=== PATIENT | female | born 1985 | race Hispanic/Latino ===

== ENCOUNTER 2017-12-07 08:46 | Emergency (ER) | payer OTHER ==
[2017-12-07] MEDS ORDERED: Sodium Chloride 0.9% 1,000 ML IV STA (09:45)
[2017-12-07 10:02] LABS: BASO # 0.1 K/uL (0.0-0.2); BASO % 0.5 % (0.0-2.0); EOS # 0.2 K/uL (0.0-0.7); EOS % 1.7 % (0.0-4.0); HEMOGLOBIN 13.9 g/dL (12.0-16.0); LYMPH # 4.5 K/uL (1.0-4.3); LYMPH % 40.8 % (20.0-40.0); MEAN CELL VOLUME 83.1 fl (81.0-99.0); MEAN CORPUSCULAR HEMOGLOBIN 27.9 pg (27.0-31.0); MEAN CORPUSCULAR HGB CONC 33.6 g/dL (33.0-37.0); MONO # 0.6 K/uL (0.0-0.8); NEUT # 5.8 K/uL (1.8-7.0); NRBC % 0.1 % (0.0-0.0); RBC 4.97 Mil/uL (3.80-5.20); RED CELL DISTRIBUTION WIDTH 13.6 % (11.5-14.5); WHITE BLOOD COUNT 11.1 K/uL (4.8-10.8)
--- NOTE | 2017-12-07 10:12 | ED PDOC ---
HPI: Abdomen Time Seen by Provider: 12/07/17 09:38 Chief Complaint (Nursing): Abdominal Pain Chief Complaint (Provider): Abdominal Pain History Per: Patient History/Exam Limitations: no limitations Onset/Duration Of Symptoms: Days Current Symptoms Are (Timing): Still Present Additional Complaint(s): 32 year old female presents to the emergency department with a complaint of a right-sided back pain that radiates to the right upper abdomen region with an episode of vomiting. Patient reports she has a history of kidney stones. Denies urinary problems, fever, chills, or diarrhea. Past Medical History Reviewed: Historical Data, Nursing Documentation, Vital Signs Vital Signs: Last Vital Signs Temp 98.7 F 12/07/17 14:11 Pulse 84 12/07/17 14:11 Resp 16 12/07/17 14:11 BP 104/71 12/07/17 14:11 Pulse Ox 99 12/07/17 14:11 - Medical History PMH: Kidney Stones ("PASSED ON OWN"), Chronic Kidney Disease - Family History Family History: States: Unknown Family Hx - Immunization History Hx Tetanus Toxoid Vaccination: No Hx Influenza Vaccination: No Hx Pneumococcal Vaccination: No - Home Medications Home Medications: Ambulatory Orders Medication Instructions Recorded Ciprofloxacin [Cipro] 500 mg PO BID #10 tab 12/07/17 Naproxen [Naprosyn] 500 mg PO BID PRN #15 tablet 12/07/17 - Allergies Allergies/Adverse Reactions: Allergies Allergy/AdvReac Type Severity Reaction Status Date / Time No Known Allergies Allergy Verified 01/07/16 23:15 Review of Systems ROS Statement: Except As Marked, All Systems Reviewed And Found Negative (As per HPI, otherwise negative) Constitutional: Negative for: Fever, Chills Gastrointestinal: Positive for: Vomiting. Negative for: Diarrhea Genitourinary Female: Negative for: Dysuria, Frequency, Incontinence, Hematuria Musculoskeletal: Positive for: Back Pain, Other (Right-sided flank pain) Physical Exam - Reviewed Nursing Documentation Reviewed: Yes Vital Signs Reviewed: Yes - Physical Exam Appears: Positive for: In Acute Distress (Mild) Head Exam: Positive for: NORMAL INSPECTION Skin: Positive for: Normal Color, Warm, Dry Cardiovascular/Chest: Positive for: Regular Rate, Rhythm. Negative for: Murmur Respiratory: Positive for: Normal Breath Sounds. Negative for: Accessory Muscle Use, Respiratory Distress Gastrointestinal/Abdominal: Positive for: Soft, Tenderness (Right upper quadrant pain). Negative for: Normal Exam Back: Positive for: Other (Right flank pain). Negative for: Normal Inspection Neurologic/Psych: Positive for: Alert, Oriented (x3) - Laboratory Results Result Diagrams: 12/07/17 09:53 12/07/17 09:53 - ECG O2 Sat by Pulse Oximetry: 99 (RA) Pulse Ox Interpretation: Normal Medical Decision Making Medical Decision Making: Time: 943 Initial Impression: Back pain and abdominal pain Initial Plan: CMP Lipase PTT & Prothrombin Sodium Chloride 1L IV Zofran 4 mg IV Urine Culture Urinalysis Morphine 2 mg IV Abd & Pelvis CT Reevaluation Time: Abd/Pelvis CT FINDINGS: LOWER THORAX: Unremarkable. LIVER: Unremarkable. No gross lesion or ductal dilatation. GALLBLADDER AND BILE DUCTS: Unremarkable. PANCREAS: Unremarkable. No gross lesion or ductal dilatation. SPLEEN: Unremarkable. ADRENALS: Unremarkable. No mass. KIDNEYS AND URETERS: Right hydronephrosis and hydroureter without visible ureteral or bladder calculi. Bilateral upper tract calculi none larger than 3 mm. VASCULATURE: Unremarkable. No aortic aneurysm. BOWEL: Unremarkable. No obstruction. No gross mural thickening. APPENDIX: Unremarkable. Normal appendix. PERITONEUM: Unremarkable. No free fluid. No free air. LYMPH NODES: Unremarkable. No enlarged lymph nodes. BLADDER: Unremarkable. REPRODUCTIVE: Intrauterine contraceptive device (IUD) identified No significant interval change compared to the prior examination(s). BONES: No acute fracture. OTHER FINDINGS: None. IMPRESSION: 1. Right hydronephrosis, hydroureter (mild). No visible ureteral or urinary bladder calculus identified suggesting the recently passed calculus 2. Small upper tract calculi a finding identified previously. Time: 1218 --Rocephin 1 gm Time: 1300 --Patient is medically stable for discharge and given Rx for Cirpo 500 mg and Naprosyn [address] mg[address] Follow up [address] Renetta Garcia MD. Clinical Impression: Urinary Tract Infection (UTI) and Nephrolithiasis Scribe Attestation: Documented by Rachel Aly, acting as a scribe for Yisel Carolina MD. Provider Scribe Attestation: All medical record entries made by the Scribe were at my direction and personally dictated by me. I have reviewed the chart and agree that the record accurately reflects my personal performance of the history, physical exam, medical decision making, and the department course for this patient. I have also personally directed, reviewed, and agree with the discharge instructions and disposition. Disposition - Clinical Impression Clinical Impression: Nephrolithiasis, UTI (urinary tract infection) - Patient ED Disposition Is Patient to be Admitted: No Counseled Patient/Family Regarding: Studies Performed, Diagnosis, Need For Followup, Rx Given - Disposition Referrals: Renetta Garcia MD [Medical Doctor] - Disposition: Routine/Home Disposition Time: 13:00 Condition: IMPROVED Prescriptions: Ciprofloxacin [Cipro] 500 mg PO BID #10 tab Naproxen [Naprosyn] 500 mg PO BID PRN #15 tablet PRN Reason: Pain, Moderate (4-7) Instructions: Urinary Tract Infections in Adults, Kidney Stones in Adults Forms: [facility] (German)
[2017-12-07 10:14] LABS: ALB/GLOB RATIO 1.1 (1.0-2.1); ALBUMIN 4.2 g/dL (3.5-5.0); ALT/SGPT 37 U/L (9-52); AST/SGOT 25 U/L (14-36); BLOOD UREA NITROGEN 16 mg/dl (7-17); CALCIUM 9.6 mg/dL (8.4-10.2); GFR AFRICAN-AMERICAN > 60; GFR NON-AFRICAN AMERICAN > 60; LIPASE 50 U/L (23-300)
[2017-12-07 10:30] LABS: PARTIAL THROMBOPLASTIN TIME 25.1 Seconds (25.6-37.1); PROTHROMBIN TIME 11.4 Seconds (9.8-13.1)
--- NOTE | 2017-12-07 11:59 | CT ---
PROCEDURE: CT Abdomen and Pelvis without intravenous contrast HISTORY: R flank/RUQ pain COMPARISON: 01/08/2016. CT abdomen and pelvis. Summary of findings on the comparison examination: 1.6 mm obstructing distal right ureteral stone, bilateral Nonobstructing renal stones TECHNIQUE: Unenhanced study. Neither oral nor intravenous contrast administered. Radiation dose: Total exam DLP = 1018.21 mGy-cm. This CT exam was performed using one or more of the following dose reduction techniques: Automated exposure control, adjustment of the mA and/or kV according to patient size, and/or use of iterative reconstruction technique. FINDINGS: LOWER THORAX: Unremarkable. LIVER: Unremarkable. No gross lesion or ductal dilatation. GALLBLADDER AND BILE DUCTS: Unremarkable. PANCREAS: Unremarkable. No gross lesion or ductal dilatation. SPLEEN: Unremarkable. ADRENALS: Unremarkable. No mass. KIDNEYS AND URETERS: Right hydronephrosis and hydroureter without visible ureteral or bladder calculi. Bilateral upper tract calculi none larger than 3 mm. VASCULATURE: Unremarkable. No aortic aneurysm. BOWEL: Unremarkable. No obstruction. No gross mural thickening. APPENDIX: Unremarkable. Normal appendix. PERITONEUM: Unremarkable. No free fluid. No free air. LYMPH NODES: Unremarkable. No enlarged lymph nodes. BLADDER: Unremarkable. REPRODUCTIVE: Intrauterine contraceptive device (IUD) identified No significant interval change compared to the prior examination(s). BONES: No acute fracture. OTHER FINDINGS: None. IMPRESSION: 1. Right hydronephrosis, hydroureter (mild). No visible ureteral or urinary bladder calculus identified suggesting the recently passed calculus 2. Small upper tract calculi a finding identified previously.
[2017-12-07 12:11] LABS: SQUAMOUS EPITHIAL 9 /hpf (0-5); URINE BACTERIA RARE (<OCC); URINE BILIRUBIN NEGATIVE (NEGATIVE); URINE BLOOD MODERATE (NEGATIVE); URINE CLARITY CLOUDY (Clear); URINE COLOR YELLOW (YELLOW); URINE GLUCOSE (UA) NEG (Normal); URINE LEUKOCYTE ESTERASE SMALL Leu/uL (Negative); URINE PROTEIN NEGATIVE (NEGATIVE); URINE UROBILINOGEN 0.2-1.0 mg/dL (0.2-1.0)
[2017-12-07] MEDS ORDERED: cefTRIAXone (Rocephin) 1 gm Inj ONE (12:56)
[2017-12-07 13:22] VITALS: RESP 16
[2017-12-07 13:45] VITALS: O2SAT 99
[2017-12-07 14:14] VITALS: BP 104/71; PULSE 84; TEMP 98.7
== END 2017-12-07 14:11 | disposition home or self-care (01) ==
LOC: H.ER 08:46
DX: N20.0 Calculus of kidney (principal); N39.0 Urinary tract infection, site not specified
CPT/HCPCS: 74176; 80053; 81003; 81025; 83690; 85025; 85610; 85730; 87086; 96361; 96365; 96375; 99284; J0696; J2270; J2405; J7040

== ENCOUNTER 2017-12-28 07:44 | Emergency (ER) | payer OTHER ==
[2017-12-28] MEDS ORDERED: Sodium Chloride 0.9% 1,000 ML IV STA (08:16)
--- NOTE | 2017-12-28 08:18 | ED PDOC ---
HPI: Back Time Seen by Provider: 12/28/17 08:12 Chief Complaint (Nursing): Back Pain History Per: Patient Onset/Duration Of Symptoms: Days Current Symptoms Are (Timing): Still Present Quality Of Discomfort: Aching Severity: Moderate Pain Scale Rating Of: 4 Previous Symptoms: Back Pain Associated Symptoms: None Exacerbating Factor(s): Nothing Additional Complaint(s): Right flank pain radiating to front assoc with nausea. Denies fever, dysuria. Past Medical History Vital Signs: Last Vital Signs Temp 97 F L 12/28/17 08:01 Pulse 92 H 12/28/17 08:01 Resp 18 12/28/17 08:01 BP 117/81 12/28/17 08:01 Pulse Ox 97 12/28/17 08:01 - Medical History PMH: Kidney Stones ("PASSED ON OWN"), Chronic Kidney Disease - Family History Family History: States: Unknown Family Hx - Immunization History Hx Tetanus Toxoid Vaccination: No Hx Influenza Vaccination: No Hx Pneumococcal Vaccination: No - Home Medications Home Medications: Ambulatory Orders Medication Instructions Recorded Ciprofloxacin [Cipro] 500 mg PO BID #10 tab 12/07/17 Naproxen [Naprosyn] 500 mg PO BID PRN #15 tablet 12/07/17 Sulfamethoxazole/Trimethoprim 1 tab PO BID #20 tab 12/28/17 [Bactrim DS 800 mg-160 mg] Tamsulosin [Flomax] 0.4 mg PO DAILY #5 cap 12/28/17 traMADol [Ultram] 50 mg PO Q8 #10 tab 12/28/17 - Allergies Allergies/Adverse Reactions: Allergies Allergy/AdvReac Type Severity Reaction Status Date / Time No Known Allergies Allergy Verified 12/28/17 08:01 Review of Systems Constitutional: Negative for: Fever Gastrointestinal: Positive for: Nausea, Abdominal Pain Genitourinary Female: Negative for: Dysuria, Frequency Musculoskeletal: Positive for: Back Pain Physical Exam - Physical Exam Appears: Positive for: Non-toxic, No Acute Distress Skin: Positive for: Normal Color, Warm, DRY Gastrointestinal/Abdominal: Positive for: Bowel Sounds, Soft. Negative for: Tenderness Back: Negative for: L CVA Tenderness, R CVA Tenderness - Laboratory Results Result Diagrams: 12/28/17 08:43 12/28/17 08:43 - ECG O2 Sat by Pulse Oximetry: 97 Disposition - Clinical Impression Clinical Impression: Kidney stone - Patient ED Disposition Is Patient to be Admitted: No Counseled Patient/Family Regarding: Studies Performed, Diagnosis, Need For Followup, Rx Given - Disposition Disposition: Routine/Home Disposition Time: 09:17 Condition: FAIR Prescriptions: Sulfamethoxazole/Trimethoprim [Bactrim DS 800 mg-160 mg] 1 tab PO BID #20 tab Tamsulosin [Flomax] 0.4 mg PO DAILY #5 cap traMADol [Ultram] 50 mg PO Q8 #10 tab Instructions: Kidney Stones in Adults Forms: [facility] (Cambodian)
[2017-12-28 09:00] LABS: BASO # 0.1 K/uL (0.0-0.2); BASO % 0.8 % (0.0-2.0); EOS # 0.4 K/uL (0.0-0.7); EOS % 3.7 % (0.0-4.0); HEMOGLOBIN 13.6 g/dL (12.0-16.0); LYMPH # 2.9 K/uL (1.0-4.3); LYMPH % 29.3 % (20.0-40.0); MEAN CELL VOLUME 84.4 fl (81.0-99.0); MEAN CORPUSCULAR HGB CONC 33.2 g/dL (33.0-37.0); MEAN PLATELET VOLUME 8.8 fl (7.2-11.7); MONO # 0.6 K/uL (0.0-0.8); MONO % 6.3 % (0.0-10.0); NEUT # 5.9 K/uL (1.8-7.0); NEUT % 59.9 % (50.0-75.0); RBC 4.86 Mil/uL (3.80-5.20); RED CELL DISTRIBUTION WIDTH 13.5 % (11.5-14.5); WHITE BLOOD COUNT 9.8 K/uL (4.8-10.8)
[2017-12-28 09:07] LABS: ALB/GLOB RATIO 1.1 (1.0-2.1); ALBUMIN 4.1 g/dL (3.5-5.0); ALT/SGPT 42 U/L (9-52); AST/SGOT 29 U/L (14-36); BLOOD UREA NITROGEN 16 mg/dl (7-17); CALCIUM 9.6 mg/dL (8.4-10.2); GFR AFRICAN-AMERICAN > 60; GFR NON-AFRICAN AMERICAN > 60
--- NOTE | 2017-12-28 09:13 | CT ---
PROCEDURE: CT Abdomen and Pelvis without intravenous contrast HISTORY: r/o kidney stone COMPARISON: None. TECHNIQUE: Without contrast.. Contrast Dose: 0 Radiation dose: Total exam DLP = 864.68 mGy-cm. This CT exam was performed using one or more of the following dose reduction techniques: Automated exposure control, adjustment of the mA and/or kV according to patient size, and/or use of iterative reconstruction technique. FINDINGS: LOWER THORAX: Unremarkable. LIVER: Unremarkable. No gross lesion or ductal dilatation. GALLBLADDER AND BILE DUCTS: Unremarkable. PANCREAS: Unremarkable. No gross lesion or ductal dilatation. SPLEEN: Unremarkable. ADRENALS: Unremarkable. No mass. KIDNEYS AND URETERS: Minimal right hydronephrosis and right hydroureter. Right ureter dilated to the junction of the distal and middle thirds. No ureteral calculus. 3 mm nonobstructing right upper pole calculus and 3 mm nonobstructing right lower pole calculus. 3 mm nonobstructing left lower pole calculus. 2 mm nonobstructing left upper pole calculus. No obstructing urinary calculus. No renal mass. No left hydronephrosis. No perinephric fluid. VASCULATURE: Unremarkable. No aortic aneurysm. BOWEL: Unremarkable. No obstruction. No gross mural thickening. APPENDIX: Unremarkable. Normal appendix. PERITONEUM: Unremarkable. No free fluid. No free air. LYMPH NODES: Unremarkable. No enlarged lymph nodes. BLADDER: Suboptimally distended. No gross abnormality. REPRODUCTIVE: Normal uterus except for intrauterine device. BONES: Lumbar levoscoliosis OTHER FINDINGS: None. IMPRESSION: Bilateral small nonobstructing renal calculi. Minimal right hydroureteronephrosis. No obstructing calculus. No other acute abnormality.
[2017-12-28 12:28] VITALS: BP 122/82; PULSE 88; TEMP 97; O2SAT 98; BMI 32.9
[2017-12-28 12:30] VITALS: RESP 18
== END 2017-12-28 09:45 | disposition home or self-care (01) ==
LOC: H.ER 07:44
DX: N20.0 Calculus of kidney (principal)
CPT/HCPCS: 74176; 80053; 81025; 85025; 87086; 96374; 99283; J1885; J7040